=== PATIENT | female | born 1985 | race African-American/Black ===

== ENCOUNTER 2023-08-22 09:09 | Outpatient (CLI) | payer BC, SELFPAY ==
--- NOTE | 2023-08-22 09:15 | CRLHL7_ITS ---
For Patients: As a result of the Century Cures Act, medical imaging exams and procedure reports are released immediately into your electronic medical record. You may view this report before your referring provider. If you have questions, please contact your health care provider. INDICATION: Evaluate anatomy. COMPARISON: none TECHNIQUE: Real time hugo scale imaging of the fetus was performed as well as color Doppler analysis of the umbilical vessels. FINDINGS: Sonographic imaging demonstrates a single living intrauterine gestation. Fetus demonstrates a regular cardiac rate of 137 beats per minute. Fetus has a vertex position. The placenta lies anteriorly without evidence of placenta previa. Placental edge is located 6.7 cm from the internal cervical os. Amniotic fluid volume appears normal. Single deepest vertical pocket: 5.0 cm. The cervix is closed and measures 4.1 cm in length. The composite ultrasound gestational age is calculated at 22 weeks 1 day with an estimated sonographic due date of 12/25/2023. The estimated weight is 442 grams which lies at the 94th %. The following biometric measurements were obtained: Biparietal diameter: 5.1 cm/21 weeks 4 days 85th% Head circumference: 20.0 cm/22 weeks 1 day 94th% Abdominal circumference: 16.2 cm/21 weeks 2 days 66th% Femur length: 3.8 cm/22 weeks 1 day 88th% The HC/AC ratio measures: 1.24 range (1.05-1.23) On anatomic survey, there is a normal appearance of the cerebral ventricles, cavum septi pellucidi, cisterna magna and cerebellum. The nose, lips, and facial profile appear normal. The cervical, thoracic and lumbar spine are well visualized and appear normal. There is a normal four-chamber heart view and the left and right ventricular outflow tracts appear normal. The diaphragm and stomach appear normal. The kidneys and bladder also appear normal. There is a normal three-vessel cord and cord insertion site. The four extremities appear normal. IMPRESSION: Sonographic gestational age 22 weeks 1 day and sonographic due date 12/25/2023. Sonographic age 11 days ahead of the clinical age. No intrinsic abnormalities noted on anatomic survey. Estimated weight 94th percentile. Abdominal circumference 66th percentile. Dictated by Melquiades Blanco MD @ 08/22/2023 12:38:14 PM (Electronically Signed)
== END 2023-08-22 09:10 | disposition home or self-care (01) ==
LOC: US 09:10
PROVIDERS: Visit Provider Advanced Practice Midwife
DX: O09.522 Supervision of elderly multigravida, second trimester (principal); Z3A.22 22 weeks gestation of pregnancy
CPT/HCPCS: 76805

== ENCOUNTER 2023-09-19 09:43 | Outpatient (CLI) | payer BC, SELFPAY ==
--- NOTE | 2023-09-19 10:15 | US_ITS ---
Patient: CANDI SALAZAR Facility:?[facility] Patient ID:?[id number] Site Patient ID:?[id number]. Site :?1985 Study:?US-Chandni DENT LT-09/19/2023 10:38:22 AM Ordering Physician:JUAN FRIEND Final Report: INDICATION: Left leg pain and swelling COMPARISON: None available. FINDINGS: Ultrasound of the venous drainage of the left lower extremity shows no evidence of deep venous thrombosis. There is normal antegrade flow from the posterior tibial and popliteal veins superiorly through the common femoral vein. There is normal augmentation and compressibility of these veins. The right common femoral vein is widely patent. IMPRESSION: No evidence of deep venous thrombosis on ultrasound examination of the left lower extremity. Dictated by Meek Case MD @ 09/19/2023 11:15:04 AM Signed by:?Meek Case MD @09/19/2023 11:15:04 AM (Electronic Signature)
== END 2023-09-19 09:44 | disposition home or self-care (01) ==
LOC: US 09:45
PROVIDERS: Visit Provider Obstetrics & Gynecology
DX: M79.89 Other specified soft tissue disorders (principal); M79.605 Pain in left leg
CPT/HCPCS: 93971

== ENCOUNTER 2023-10-17 08:35 | Outpatient (CLI) | payer BC, SELFPAY | END 2023-10-17 08:36 | disposition home or self-care (01) | LOC: NFLDREF 12:03 | PROVIDERS: Visit Provider Obstetrics & Gynecology | DX: Z34.83 Encounter for supervision of other normal pregnancy, third trimester (principal) | CPT/HCPCS: 86592; 86787; 86850 ==

== ENCOUNTER 2023-10-31 10:01 | Outpatient (CLI) | payer BC, SELFPAY ==
--- NOTE | 2023-10-31 11:00 | US_ITS ---
Patient: CANDI SALAZAR Facility:?[facility] Patient ID:?[id number] Site Patient ID:?[id number]. Site :?1985 Study:?US-OB Pelvis OB F/U-10/31/2023 11:51:00 AM Ordering Physician:Abena Zhao Final Report: HISTORY: Size and date discrepancy. Follow-up growth. COMPARISON: Ob ultrasound from 08/22/2023 TECHNIQUE: Ultrasound examination of the is performed with transabdominal technique. FINDINGS: A single intrauterine gestation is seen in cephalic presentation with regular cardiac activity at 155 beats per minute. The placenta is fundal and posterior and is free of the cervical os. The placental grade is 1 and the amniotic fluid volume is normal. Single deepest vertical pocket: Normal at 5.8 cm. The cervix is closed and normal in length at 3.8 centimeters. BPD: 9.1 cm 36 weeks 5 days HC: 31.5 cm 35 weeks 2 days AC: 28.5 cm 32 weeks 3 days FL: 6.4 cm 30 weeks 0 days The estimated age by ultrasound is 34 weeks 3 days, with an estimated date of delivery of 12/09/2023. This represents significant increase in rate of growth compared with the clinical age of 30 weeks 4 days and the previous OB ultrasound. The ultrasound ratios are normal. The estimated weight of 2200 grams is greater than the 97th percentile based on the clinical dates. A full anatomic survey has been previously performed. The kidneys and stomach are normal in appearance. IMPRESSION: 1. Single intrauterine gestation in cephalic presentation with regular cardiac activity. 2. Estimated gestational age is 34 weeks 3 days. 3. There has been a prominent increase in rate of growth compared to the clinical dates and the previous ultrasound. 4. Estimated weight of 2200 grams is greater than the 97th percentile based on the clinical dates. 5. The findings are that of macrosomia. Dictated by Luc Zabala MD @ 11/02/2023 11:25:02 AM Signed by:?Luc Zabala MD @11/02/2023 11:25:02 AM (Electronic Signature)
== END 2023-10-31 10:02 | disposition home or self-care (01) ==
LOC: US 10:01
PROVIDERS: Visit Provider Obstetrics & Gynecology
DX: O36.5930 Maternal care for other known or suspected poor fetal growth, third trimester, not applicable or unspecified (principal); Z3A.34 34 weeks gestation of pregnancy
CPT/HCPCS: 76816